=== PATIENT | male | born 1995 | race Two or more races ===

== ENCOUNTER 2018-12-06 21:22 | Emergency (ER) | payer OTHER ==
[~2018-12-06] VITALS: Ht 185.4 cm; Wt 74.4 kg
[2018-12-07] MEDS ORDERED: ZOFRAN4 MG PO (04:44)
[2018-12-07] MEDS ORDERED: PEPCID40 MG PO (04:44)
== END 2018-12-07 04:53 | disposition home or self-care (01) ==
LOC: ER 21:22
DX: R11.2 Nausea with vomiting, unspecified (principal); F06.4 Anxiety disorder due to known physiological condition